=== PATIENT | male | born 1990 | race African-American/Black ===

== ENCOUNTER 2017-05-28 19:59 | Emergency (ER) | payer BC, OTHER ==
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
[2017-05-28] MEDS ORDERED: Diphtheria,Pertussis(Acell),Tetanus Vaccine 0.5 ML Syringe IM ONE (20:40)
[2017-05-28] MEDS ORDERED: Acetaminophen/HYDROcodone 325-5 MG Tab PO ONE (20:40)
[2017-05-29 05:22] VITALS: BP 137/73
--- NOTE | 2017-05-30 10:44 | CR ---
EXAM DATE: 05/28/17 PATIENT'S AGE: 26 Patient: JAELYN SAVAGE Facility: [place], [place] Site . Site : 1990 Study: XRay Extremity Right ankle [id number]/14/2018 8:20:47 PM Ordering Physician: Doctor Frias Final Report: Indication: Injury Technique: Three views of the right ankle Comparison: None available Findings: Bones: No acute fracture or dislocation. Slight prominence of the medial ankle mortise. Joint spaces: Unremarkable. Soft tissues: Medial and anterior soft tissue swelling. Impression: No acute fracture. Slight prominence of the medial ankle mortise with overlying soft tissue swelling. Correlate for ligamentous injury. Dictated by Gerber Ferreira MD @ 05/28/2017 8:23:34 PM Dictated by: Gerber Ferreira MD @ 05/28/2017 20:23:42 (Electronic Signature) Report Signed by Proxy. RODRIGO
== END 2017-05-28 21:03 | disposition home or self-care (01) ==
LOC: MW.ED 19:59
DX: S99.911A Unspecified injury of right ankle, initial encounter (principal); Z23 Encounter for immunization; V28.4XXA Motorcycle driver injured in noncollision transport accident in traffic accident, initial encounter; Y92.410 Unspecified street and highway as the place of occurrence of the external cause
CPT/HCPCS: 73610; 90471; 90715; 99283; A9270

== ENCOUNTER 2018-10-23 02:22 | Emergency (ER) | payer SELFPAY ==
--- NOTE | 2018-10-23 02:50 | EDM.PDOC ---
ED HPI GENERAL MEDICAL PROBLEM - General Chief Complaint: Back Pain or Injury Stated Complaint: BACK PAIN Time Seen by Provider: 10/23/18 02:47 - History of Present Illness INITIAL COMMENTS - FREE TEXT/NARRATIVE: HISTORY AND PHYSICAL: History of present illness: Patient is 28-year-old black male with no significant past medical history presents with concern of mid back pain thinks he may have strained his back with a recent exercise regime he does do physical labor work he denies any numbness weakness or other complaints. Review of systems: As per history of present illness and below otherwise all systems reviewed and negative. Past medical history: As per history of present illness and as reviewed below otherwise noncontributory. Surgical history: As per history of present illness and as reviewed below otherwise noncontributory. Social history: No reported history of drug or alcohol abuse. Family history: As per history of present illness and as reviewed below otherwise noncontributory. Physical exam: HEENT: Atraumatic, normocephalic, pupils reactive, negative for conjunctival pallor or scleral icterus, mucous membranes moist, throat clear, neck supple, nontender, trachea midline. Lungs: Clear to auscultation, breath sounds equal bilaterally, chest nontender. Heart: S1S2, regular, negative for clicks, rubs, or JVD. Abdomen: Soft, nondistended, nontender. Negative for masses or hepatosplenomegaly. Negative for costovertebral tenderness. Pelvis: Stable nontender. Genitourinary: Deferred. Rectal: Deferred. Extremities: Atraumatic, negative for cords or calf pain. Neurovascular unremarkable. Neuro: Awake, alert, oriented. Cranial nerves II through XII unremarkable. Cerebellum unremarkable. Motor and sensory unremarkable throughout. Exam nonfocal. Back: Patient is some mild paravertebral tenderness in the right thoracic spine is no vertebral body or point tenderness motor and sensory are normal deep tendon reflexes are normal Diagnostics: EKG chest x-ray thoracic spine x-ray Therapeutics: None Impression: #1 thoracic strain Definitive disposition and diagnosis as appropriate pending reevaluation and review of above. middle back Pain Score (Numeric/FACES): 8 - Related Data Allergies Allergy/AdvReac Type Severity Reaction Status Date / Time No Known Allergies Allergy Verified 10/23/18 02:36 Home Meds: Home Meds . [No Known Home Meds] 12/22/13 [History] Past Medical History - Past Health History Medical/Surgical History: Denies Medical/Surgical History HEENT History: Reports: Other (See Below) Other HEENT History: long hx of nasal obstruction Cardiovascular History: Reports: None Respiratory History: Reports: None Gastrointestinal History: Reports: None Genitourinary History: Reports: None Musculoskeletal History: Reports: None Neurological History: Reports: None Psychiatric History: Reports: None Endocrine/Metabolic History: Reports: None Hematologic History: Reports: None Immunologic History: Reports: None Oncologic (Cancer) History: Reports: None Dermatologic History: Reports: None - Past Surgical History Head Surgeries/Procedures: Reports: None Social & Family History - Family History Family Medical History: Noncontributory - Tobacco Use Smoking Status *Q: Never Smoker - Recreational Drug Use Recreational Drug Use: No ED ROS GENERAL - Review of Systems Review Of Systems: ROS reveals no pertinent complaints other than HPI. ED EXAM, GENERAL - Physical Exam Exam: See Below (See dictation) Course - Vital Signs Last Recorded V/S: Last Vital Signs Temp 36.2 C 10/23/18 02:25 Pulse 48 L 10/23/18 02:25 Resp 18 10/23/18 02:25 BP 134/59 L 10/23/18 02:25 Pulse Ox 97 10/23/18 02:25 - Orders/Labs/Meds Orders: Active Orders 24 hr Category Date Time Status EKG Documentation Completion [RC] STAT Care 10/23/18 02:32 Active Chest 1V Frontal [CR] Stat Exams 10/23/18 02:32 Ordered Thoracic Spine 2V [CR] Stat Exams 10/23/18 02:33 Ordered Departure - Departure Time of Disposition: 02:49 Disposition: Home, Self-Care 01 Condition: Good Clinical Impression: Thoracic myofascial strain - Discharge Information Additional Instructions: The following information is given to patients seen in the emergency department who are being discharged to home. This information is to outline your options for follow-up care. We provide all patients seen in our emergency department with a follow-up referral. The need for follow-up, as well as the timing and circumstances, are variable depending upon the specifics of your emergency department visit. If you don't have a primary care physician on staff, we will provide you with a referral. We always advise you to contact your personal physician following an emergency department visit to inform them of the circumstance of the visit and for follow-up with them and/or the need for any referrals to a consulting specialist. The emergency department will also refer you to a specialist when appropriate. This referral assures that you have the opportunity for followup care with a specialist. All of these measure are taken in an effort to provide you with optimal care, which includes your followup. Under all circumstances we always encourage you to contact your private physician who remains a resource for coordinating your care. When calling for followup care, please make the office aware that this follow-up is from your recent emergency room visit. If for any reason you are refused follow-up, please contact the [facility] emergency department at and asked to speak to the emergency department charge nurse. Diclofenac as prescribed and follow-up primary medical doctor as needed as discussed return as needed as discussed - My Orders Last 24 Hours: My Active Orders 10/23/18 02:32 EKG Documentation Completion [RC] STAT Chest 1V Frontal [CR] Stat 10/23/18 02:33 Thoracic Spine 2V [CR] Stat - Assessment/Plan Last 24 Hours: My Active Orders 10/23/18 02:32 EKG Documentation Completion [RC] STAT Chest 1V Frontal [CR] Stat 10/23/18 02:33 Thoracic Spine 2V [CR] Stat
--- NOTE | 2018-10-23 03:44 | CR ---
Indication: Chest pain Technique: Chest 1 view Comparison: None Findings/Impression: Cardiovascular and mediastinum: Heart size and vasculature are normal in caliber and appearance. Mediastinum is within normal limits. Lungs and pleural space: Lungs are clear. No sign of infiltrate or mass. No sign of pleural effusion. No pneumothorax. Bones and soft tissues: No significant findings. Dictated by Gerber Ferreira MD @ 10/23/2018 3:41:44 AM Dictated by: Gerber Ferreira MD @ 10/23/2018 03:41:49 (Electronically Signed)
--- NOTE | 2018-10-23 03:44 | CR ---
INDICATION: Pain TECHNIQUE: Thoracic spine 3 view. COMPARISON: None available FINDINGS: Bones: Alignment is normal. No fractures or significant bone lesions. Joints: Disc spaces and facets are unremarkable. Soft tissues: Unremarkable. IMPRESSION: Unremarkable thoracic spine. Dictated by Gerber Ferreira MD @ 10/23/2018 3:43:09 AM Dictated by: Gerber Ferreira MD @ 10/23/2018 03:43:15 (Electronically Signed)
[2018-10-23 03:59] VITALS: BP 125/72
== END 2018-10-23 03:48 | disposition home or self-care (01) ==
LOC: MW.ED 02:22
DX: S29.012A Strain of muscle and tendon of back wall of thorax, initial encounter (principal); X58.XXXA Exposure to other specified factors, initial encounter
CPT/HCPCS: 71045; 71045-26; 72070; 72070-26; 93005; 99285-25